=== PATIENT | female | born 1995 | race Caucasian/White ===

== ENCOUNTER 2016-12-31 20:32 | Emergency (ER) | payer OTHER ==
[2016-12-31 21:15] VITALS: BP 108/59
== END 2016-12-31 22:20 | disposition home or self-care (01) ==
LOC: ED 20:32
DX: J02.9 Acute pharyngitis, unspecified (principal); J45.909 Unspecified asthma, uncomplicated

== ENCOUNTER 2017-01-31 13:11 | Emergency (ER) | payer OTHER ==
[2017-01-31 16:01] LABS: CALCIUM 8.9 mg/dL (8.5-10.1); CARBON DIOXIDE 26.9 mmol/L (21-32); CHLORIDE SERUM 103 mmol/L (98-107); CREATININE SERUM 0.6 mg/dL (0.6-1.0); GFR1 > 60 mL/min; GLUCOSE SERUM 86 mg/dL (74-106); SODIUM SERUM 138 mmol/L (136-145)
[2017-01-31 18:03] VITALS: BP 114/68
== END 2017-01-31 18:03 | disposition home or self-care (01) ==
LOC: ED 13:11
PROVIDERS: Emergency Medicine
DX: O21.0 Mild hyperemesis gravidarum (principal); Z3A.00 Weeks of gestation of pregnancy not specified

== ENCOUNTER 2017-02-16 22:32 | Emergency (ER) | payer OTHER ==
[2017-02-16 22:41] VITALS: BP 123/74
== END 2017-02-17 01:09 | disposition left against medical advice (07) ==
LOC: ED 22:32
DX: R10.9 Unspecified abdominal pain (principal); Z53.21 Procedure and treatment not carried out due to patient leaving prior to being seen by health care provider

== ENCOUNTER 2017-02-20 20:36 | Emergency (ER) | payer OTHER ==
[2017-02-20 22:37] VITALS: BP 128/79
== END 2017-02-20 22:37 | disposition home or self-care (01) ==
LOC: ED 20:36
DX: O26.891 Other specified pregnancy related conditions, first trimester (principal); R07.89 Other chest pain; O99.511 Diseases of the respiratory system complicating pregnancy, first trimester; J45.909 Unspecified asthma, uncomplicated; Z3A.09 9 weeks gestation of pregnancy

== ENCOUNTER 2017-07-06 11:11 | Emergency (ER) | payer OTHER ==
[~2017-07-06] VITALS: Ht 154.9 cm; Wt 84.8 kg
[2017-07-06 11:21] VITALS: Ht 154.9 cm; Wt 84.8 kg
[2017-07-06 13:37] VITALS: BP 127/56
== END 2017-07-06 13:37 | disposition short-term general hospital (02) ==
LOC: ED 11:11
DX: O26.892 Other specified pregnancy related conditions, second trimester (principal); J45.909 Unspecified asthma, uncomplicated; Z3A.27 27 weeks gestation of pregnancy

== ENCOUNTER 2018-09-25 18:47 | Emergency (ER) | payer OTHER ==
[~2018-09-25] VITALS: Ht 154.9 cm; Wt 100.2 kg
[2018-09-25 19:02] VITALS: Ht 154.9 cm; Wt 100.2 kg
[2018-09-25 21:17] VITALS: BP 138/77
== END 2018-09-25 21:17 | disposition home or self-care (01) ==
LOC: ED 18:47
DX: J45.909 Unspecified asthma, uncomplicated (principal)
CPT/HCPCS: J7620